=== PATIENT | male | born 1945 | race Native Hawaiian/Other Pacific Islander ===

== ENCOUNTER 2021-06-16 10:42 | Outpatient (CLI) | payer OTHER, MEDICARE ==
[2021-06-16 10:59] LABS: PLATELET COUNT 148 K/uL (142-355)
[2021-06-16 11:06] LABS: POTASSIUM 3.8 mmol/L (3.6-5.2)
== END 2021-06-16 18:53 | disposition home or self-care (01) ==
LOC: LABW 10:42
PROVIDERS: ATTEND Specialist
DX: Z01.810 Encounter for preprocedural cardiovascular examination (principal); I77.89 Other specified disorders of arteries and arterioles
CPT/HCPCS: 36415; 80048; 85027

== ENCOUNTER 2021-07-04 09:40 | Outpatient (CLI) | payer OTHER, MEDICARE ==
[2021-07-04 09:58] LABS: PLATELET COUNT 159 K/uL (142-355)
[2021-07-04 10:13] LABS: POTASSIUM 4.2 mmol/L (3.6-5.2)
== END 2021-07-04 21:40 | disposition home or self-care (01) ==
LOC: LABW 09:40
PROVIDERS: ATTEND Specialist
DX: Z01.810 Encounter for preprocedural cardiovascular examination (principal); I77.89 Other specified disorders of arteries and arterioles
CPT/HCPCS: 36415; 80048; 85027